=== PATIENT | female | born 2000 | race Caucasian/White ===

== ENCOUNTER 2023-01-07 13:57 | Emergency (ER) | payer SELFPAY ==
[2023-01-07 16:09] LABS: CARBON DIOXIDE,CO2 23.6 mmol/L (21.0-32.0); POTASSIUM,K 3.9 mmol/L (3.5-5.1)
== END 2023-01-07 17:10 | disposition home or self-care (01) ==
LOC: MW.ED 13:57
DX: O20.0 Threatened abortion (principal); Z3A.10 10 weeks gestation of pregnancy
CPT/HCPCS: 36415; 76801; 76801-26; 80053; 84702; 85025; 86900; 86901; 99283; 99284

== ENCOUNTER 2024-11-04 14:52 | Inpatient (IN) | payer OTHER ==
[2024-11-04 15:45] LABS: BASOPHILS ABSOLUTE AUTO 0.01 K/uL (0.00-0.20); BASOPHILS PERCENT AUTO 0.1 % (0.0-1.0); EOSINOPHILS ABSOLUTE AUTO 0.05 K/uL (0.00-0.45); EOSINOPHILS PERCENT AUTO 0.4 % (0.0-6.0); HEMATOCRIT 32.9 % (37.0-47.0); HEMOGLOBIN 11.4 g/dL (12.0-16.0); IMMATURE GRAN ABSOLUTE AUTO 0.07 K/uL (0.00-0.05); IMMATURE GRAN PERCENT AUTO 0.5 % (0.0-0.4); LYMPHOCYTES ABSOLUTE AUTO 1.84 K/uL (1.00-4.80); LYMPHOCYTES PERCENT AUTO 14.2 % (24.0-44.0); MEAN CORPUSCULAR HEMOGLOBIN 28.6 pg (28.0-32.0); MEAN CORPUSCULAR HGB CONC 34.7 g/dL (32.0-36.0); MEAN CORPUSCULAR VOLUME 82.7 fL (83.0-99.0); MEAN PLATELET VOLUME 10.1 fL (9.4-12.3); MONOCYTES ABSOLUTE AUTO 0.55 K/uL (0.00-0.80); MONOCYTES PERCENT AUTO 4.2 % (0.0-8.0); NEUTROPHILS ABSOLUTE AUTO 10.44 K/uL (1.80-7.70); NEUTROPHILS PERCENT AUTO 80.6 % (41.0-71.0); PLATELET COUNT,PLT 256 K/uL (150-400); RED BLOOD CELL COUNT 3.98 M/uL (4.10-5.30); WHITE BLOOD CELL COUNT,WBC 12.96 K/uL (3.9-11.3)
[2024-11-04 16:04] LABS: CREATININE,URINE RAND 42.7 mg/dL; PROTEIN CREATININE RATIO,URINE 0.4; PROTEIN,URINE RANDOM 15.8 mg/dL (<11.9)
[2024-11-04 16:31] LABS: A/G RATIO 0.6 (0.9-1.6); ALBUMIN 2.6 g/dL (3.4-5.0); BILIRUBIN TOTAL 0.4 mg/dL (0.2-1.0); CALCIUM 9.7 mg/dL (8.5-10.1); CARBON DIOXIDE,CO2 22.8 mmol/L (21.0-32.0); CREATININE 0.6 mg/dL (0.6-1.0); EST CRCL DRUG DOSING (CG) 122.69 mL/min; PROTEIN TOTAL,TP 6.8 g/dL (6.4-8.2); URIC ACID 4.5 mg/dL (2.6-7.2)
[2024-11-04] MEDS ORDERED: Oxytocin/0.9 % Sodium Chloride 30 UNIT/500 ML BAG IV SCH (16:45)
[2024-11-04] MEDS ORDERED: Water For Irrigation,Sterile 1,000 ML Container IRR PRN (16:45)
[2024-11-04] MEDS ORDERED: Lidocaine 1% 50 ML MDV INJECT PRN (16:45)
[2024-11-04] MEDS ORDERED: Sodium Chloride 0.9% 10 ML Syringe FLUSH PRN (16:45)
[2024-11-04] MEDS ORDERED: Sodium Chloride 0.9% 2.5 ML Syringe FLUSH PRN (16:45)
[2024-11-04] MEDS ORDERED: Tranexamic Acid in NACL,ISO-OS 1,000 MG in Premix Bag 1 BAG IV PRN (16:45)
[2024-11-04] MEDS ORDERED: Misoprostol 200 MCG Tab PO PRN (16:45)
[2024-11-04] MEDS ORDERED: Carboprost Tromethamine 250 MCG/1 mL Vial IM PRN (16:45)
[2024-11-04] MEDS ORDERED: Sodium Chloride 0.9% 20 ML SDV IV PRN (16:45)
[2024-11-04] MEDS ORDERED: Terbutaline 1 MG/ML SDV SUBCUT PRN (18:39)
[2024-11-04] MEDS: Misoprostol 25 MCG (1/4 of 100 MCG) Tab VAG PRN (19:10)
[2024-11-05] MEDS: Butorphanol 2 MG/ML SDV IVPUSH PRN (03:11)
[2024-11-05] MEDS: Lactated Ringers 1,000 ML IV SCH ×2 (05:35→21:13)
[2024-11-05] MEDS ORDERED: Bupivacaine 0.5% 10 ML SDV ONE ×2 (05:45→18:09)
[2024-11-05] MEDS ORDERED: Phenylephrine HCl In 0.9% NaCl 1 MG/10 ML Syringe ONE (05:45)
[2024-11-05] MEDS ORDERED: Ropivacaine HCl/PF 200 ML ONE (05:45)
[2024-11-05] MEDS: Ropivacaine HCl/PF 400 MG in Premix Bag 1 BAG EPIDUR SCH (06:03)
[2024-11-05] MEDS ORDERED: ePHEDrine 50 MG/ML SDV IVPUSH PRN (06:12)
[2024-11-05] MEDS ORDERED: Bupivacaine 0.5% 10 ML SDV INJECT ONE (06:12)
[2024-11-05] MEDS ORDERED: ePHEDrine 50 MG/ML SDV IM PRN (06:12)
[2024-11-05] MEDS ORDERED: Phenylephrine HCl In 0.9% NaCl 1 MG/10 ML Syringe IVPUSH PRN ×2 (06:12→20:28)
[2024-11-05] MEDS ORDERED: dexmedeTOMIDine HCl 200 MCG/2 ML SDV EPIDUR SCH (06:15)
[2024-11-05] MEDS: Oxytocin/0.9 % Sodium Chloride 30 UNIT/500 ML BAG IV SCH (12:34)
[2024-11-05] MEDS ORDERED: Azithromycin 500 MG in Sodium Chloride 0.9% 250 ML IV ONE (18:03)
[2024-11-05] MEDS ORDERED: ceFAZolin 2 GM in Sodium Chloride 0.9% 100 ML IV ONE (18:04)
[2024-11-05] MEDS ORDERED: Oxytocin 10 Units/1 ML SDV ONE (18:09)
[2024-11-05] MEDS ORDERED: fentaNYL 100 MCG/2 ML SDV ONE (18:09)
[2024-11-05] MEDS ORDERED: Ondansetron 4 MG/2 ML SDV ONE (18:09)
[2024-11-05] MEDS ORDERED: Ropivacaine 0.5% 5 MG/ML 30 ML SDV ONE (18:09)
[2024-11-05] MEDS ORDERED: ceFAZolin 1 GM Vial ONE (18:09)
[2024-11-05] MEDS ORDERED: Ketorolac 30 MG/ML SDV ONE (18:09)
[2024-11-05] MEDS ORDERED: EPINEPHrine 1 MG/1 ML Amp ONE (18:09)
[2024-11-05] MEDS ORDERED: Bupivacaine 0.25% 30 ML SDV ONE (18:09)
[2024-11-05] MEDS ORDERED: Morphine PF 10 MG/10 ML SDV ONE (18:09)
[2024-11-05] MEDS ORDERED: Lidocaine 2% 5 ML SDV ONE (18:09)
[2024-11-05] MEDS ORDERED: Azithromycin 500 MG Vial ONE (18:10)
[2024-11-05] MEDS ORDERED: ceFAZolin 1 GM in Sodium Chloride 0.9% 50 ML IV ONE (18:15)
[2024-11-05] MEDS ORDERED: Tranexamic Acid 1,000 MG/10 ML Vial ONE (19:00)
[2024-11-05] MEDS ORDERED: Labetalol 100 MG/20 ML MDV ONE (19:35)
[2024-11-05] MEDS ORDERED: diphenhydrAMINE 50 MG/ML SDV IVPUSH PRN ×2 (19:56→20:28)
[2024-11-05] MEDS ORDERED: Lanolin 100% Cream 7 GM Tube TOP PRN (19:56)
[2024-11-05] MEDS ORDERED: Ondansetron 4 MG/2 ML SDV IVPUSH PRN ×3 (19:56→20:28)
[2024-11-05] MEDS ORDERED: Oxytocin 10 Units/1 ML SDV IM PRN (19:56)
[2024-11-05] MEDS ORDERED: Ibuprofen 800 MG Tab PO PRN (19:56)
[2024-11-05] MEDS ORDERED: Misoprostol 200 MCG Tab RECTAL PRN (19:56)
[2024-11-05 20:04] LABS: PH,UMBILICAL ARTERIAL 7.247 (7.18-7.38)
[2024-11-05] MEDS ORDERED: Metoclopramide 10 MG/2 ML SDV IVPUSH PRN (20:28)
[2024-11-05] MEDS ORDERED: fentaNYL 100 MCG/2 ML SDV IVPUSH PRN (20:28)
[2024-11-05] MEDS ORDERED: Morphine 2 MG/ML SYRINGE IVPUSH PRN (20:28)
[2024-11-05] MEDS ORDERED: Naloxone 0.4 MG/ML SDV IVPUSH PRN (20:28)
[2024-11-05] MEDS ORDERED: Albuterol 0.083% 2.5 MG/3 ML Neb Soln NEB PRN (20:28)
[2024-11-05] MEDS ORDERED: HYDROmorphone 1 MG/ML Syringe IVPUSH PRN (20:28)
[2024-11-05] MEDS ORDERED: fentaNYL 50 MCG/ML SDV IVPUSH PRN (20:28)
[2024-11-05] MEDS ORDERED: Acetaminophen/oxyCODONE 325-5 MG Tab PO PRN (20:28)
[2024-11-05] MEDS ORDERED: Nalbuphine 10 MG/1 ML Vial IVPUSH PRN (20:28)
[2024-11-05] MEDS: Docusate Sodium 100 MG Cap PO SCH (21:12)
[2024-11-05] MEDS: Acetaminophen 1,000 MG in Premix Bag 1 BAG IV SCH (21:21)
[2024-11-06 06:00] LABS: HEMATOCRIT 27.8 % (37.0-47.0); HEMOGLOBIN 9.7 g/dL (12.0-16.0)
[2024-11-06] MEDS: Acetaminophen/oxyCODONE 325-5 MG Tab PO PRN (21:26)
[2024-11-07] MEDS: Acetaminophen/oxyCODONE 325-5 MG Tab PO PRN (01:01)
[2024-11-07] MEDS ORDERED: oxyCODONE 5 MG Tab PO PRN (10:20)
[2024-11-07] MEDS: Acetaminophen 500 MG Tab PO PRN (15:28)
[2024-11-07] MEDS: Bisacodyl 10 MG Supp RECTAL PRN (16:23)
== END 2024-11-07 21:47 | disposition home or self-care (01) | DRG 788 ==
LOC: MW.OB 14:52 → MW.OBCHECK 14:52 → MW.OB 16:45 → OBSVTOIN 11-05 18:57 → MW.OB 11-05 23:00
PROVIDERS: ADMIT Obstetrics & Gynecology; ATTEND Obstetrics & Gynecology
PROC: 10D00Z1 Extraction of Products of Conception, Low, Open Approach (ICD-10-PCS; principal; 2024-11-05 18:40)
DX: O14.04 Mild to moderate pre-eclampsia, complicating childbirth (principal); O42.02 Full-term premature rupture of membranes, onset of labor within 24 hours of rupture; Z37.0 Single live birth; E66.01 Morbid (severe) obesity due to excess calories; O99.214 Obesity complicating childbirth; O62.1 Secondary uterine inertia; Z3A.37 37 weeks gestation of pregnancy
CPT/HCPCS: 01968; 36415; 51702; 59025; 64488; 80053; 82570; 82803; 84156; 84550; 85014; 85018; 85025; 86592; 86850; 86900; 86901; A9270-GY; J0131; J0171; J0456; J0595; J0665; J0690; J1100; J1885; J1920; J2274; J2371; J2405; J2590; J2795; J3010; J3490; J7120